=== PATIENT | male | born 1960 | race Caucasian/White ===

== ENCOUNTER 2019-05-01 15:53 | Emergency (ER) | payer MEDICAID ==
[~2019-05-01] VITALS: Ht 185.4 cm; Wt 91.0 kg
[2019-05-01] MEDS ORDERED: LIB5 PO (16:10)
[2019-05-01] MEDS ORDERED: PARO10TA89 PO (16:10)
[2019-05-01] MEDS ORDERED: AMLO5TAB9 PO (16:10)
[2019-05-01 17:05] VITALS: BP 126/73
== END 2019-05-01 18:22 | disposition home or self-care (01) ==
LOC: EMS 15:56
DX: R76.11 Nonspecific reaction to tuberculin skin test without active tuberculosis (principal); F41.9 Anxiety disorder, unspecified; F32.9 Major depressive disorder, single episode, unspecified; I10 Essential (primary) hypertension